=== PATIENT | male | born 1995 | race Caucasian/White ===

== ENCOUNTER 2023-09-21 12:53 | Emergency (ER) | payer SELFPAY ==
[~2023-09-21] VITALS: Ht 177.8 cm; Wt 96.9 kg
[2023-09-21 12:53] VITALS: BP 102/62; PULSE 78; RESP 18; O2SAT 96
[2023-09-21] MEDS ORDERED: ZOFR4T PO (16:06)
[2023-09-21] MEDS ORDERED: AUG875T PO (16:06)
== END 2023-09-21 17:52 | disposition home or self-care (01) ==
LOC: ER 12:53
DX: J32.0 Chronic maxillary sinusitis (principal); R11.2 Nausea with vomiting, unspecified

== ENCOUNTER 2023-09-25 12:53 | Emergency (ER) | payer MEDICAID ==
[~2023-09-25] VITALS: Ht 177.8 cm; Wt 96.5 kg
[~2023-09-25 12:53] MED LIST: AUG875T PO; ZOFR4T PO
[2023-09-25] MEDS: MAALOX PLUS or MAALOX 30 ML PO ONE (13:49)
[2023-09-25 13:50] VITALS: BP 120/69; PULSE 60; RESP 17; TEMP 97.9; O2SAT 95
[2023-09-25] MEDS: DONNATAL 5ml ORAL Elix (BELLADONNA ALK-PHENOBARB) PO ONE (13:50)
[2023-09-25] MEDS: LIDOCAINE VISCOUS 2% 15ML UD PO ONE (13:50)
[2023-09-25] MEDS: ONDANSETRON ODT 4 MG TAB PO ONE (13:50)
[2023-09-25 14:10] LABS: Basophils # (auto) 0 10 ^3/uL (0-0.2); Basophils % (auto) 0.5 % (0.0-2.0); Eosinophils # (auto) 0.3 10 ^3/uL (0-0.8); Eosinophils % (auto) 3.3 % (0.0-7.0); Hematocrit 45.2 % (41.0-53.0); Hemoglobin 15.3 g/dL (13.5-17.5); Lymphocytes # (auto) 2.5 10 ^3/uL (0.4-5.4); Lymphocytes % (auto) 28.5 % (10.0-50.0); Mean Corpuscular Hemoglobin 29.5 pg (28.0-32.0); Mean Corpuscular Hgb Conc. 33.9 g/dL (32.0-36.0); Mean Corpuscular Volume 87.1 fL (80.0-100.0); Monocytes % (auto) 11.9 % (0.0-12.0); Neutrophils # (auto) 4.8 10 ^3/uL (1.6-8.6); Neutrophils % (auto) 55.8 % (37.0-80.0); Nucleated Red Blood Cells % 0.1 %; Red Blood Cells 5.19 10^6/uL (4.5-5.90); Red Cell Distribution Width 12.9 % (11.8-14.3); White Blood Cell 8.6 10^3/uL (4.4-10.8)
[2023-09-25 14:32] LABS: Alanine Aminotransferase 71 U/L (7-40); Albumin 4.7 g/dL (3.2-4.8); Alkaline Phosphatase 68 U/L (46-116); Anion Gap 3 (5-15); Aspartate Aminotransferase 46 U/L (13-40); BUN/Creatinine Ratio 10.5 (10.0-20.0); Bilirubin, Total 0.3 mg/dL (0.2-1.0); Blood Urea Nitrogen 10 mg/dL (9-23); Calcium 10.2 mg/dL (8.7-10.4); Carbon Dioxide 30 mmol/L (20-30); Chloride 106 mmol/L (98-107); Glucose 94 mg/dL (74-106); Lipase 30 U/L (12-53); Magnesium 2.4 mg/dL (1.6-2.6); Potassium 4.6 mmol/L (3.5-5.1); Sodium 139 mmol/L (136-145); Total Protein 7.4 g/dL (5.7-8.2)
[2023-09-25 14:44] LABS: Urine Bacteria NONE SEEN /hpf (None Seen); Urine Blood Negative /uL (Negative); Urine Clarity Clear (Clear); Urine Color Colorless (Yellow); Urine Protein, UAD Negative (Negative); Urine Specific Gravity 1.009 (1.001-1.035); Urine Urobilinogen Normal (Negative); Urine WBC <1 /hpf (0 - 3)
[2023-09-25] MEDS ORDERED: ZOFR4T PO ×2 (15:02→23:03)
[2023-09-25] MEDS ORDERED: DICY10CA PO (15:02)
[2023-09-25] MEDS ORDERED: NAP500T GT (23:03)
== END 2023-09-25 15:04 | disposition home or self-care (01) ==
LOC: ER 12:53
DX: B34.9 Viral infection, unspecified (principal); F12.10 Cannabis abuse, uncomplicated; R07.9 Chest pain, unspecified; Z79.899 Other long term (current) drug therapy
CPT/HCPCS: 36415; 71046; 80053; 81001; 83690; 83735; 85025; 99284; Q0162